=== PATIENT | male | born 1985 | race Caucasian/White ===

== ENCOUNTER 2020-05-23 15:42 | Emergency (ER) | payer SELFPAY ==
--- NOTE | ~2020-05-23 | XR_ITS ---
XR finger 2nd LT min 2V DATE: 05/23/2020 16:11 INDICATION: Crushed index finger between car and alexandra TECHNIQUE: 3 views of second digit COMPARISON: None FINDINGS: There is prominent irregularity and partial soft tissue amputation of the soft tissues of t he distal aspect of the second digit. There is a comminuted fracture of the distal phalanx, with fracture lines involving the shaft and com minuted displaced tuft fracture. No radiopaque soft tissue foreign body is noted. IMPRESSION: Comminuted fracture of the distal phalanx associated with partial soft tissue amputation of the distal second digit Reviewed, dictated and finalized at location A. IMPRESSION: Comminuted fracture of the distal phalanx associated with partial s oft tissue amputation of the distal second digit
[2020-05-23 15:47] VITALS: BP 140/97; PULSE 90; RESP 20; TEMP 36.8; O2SAT 98
--- NOTE | 2020-05-23 16:13 | ED.WOUNDLAC ---
HPI - Wound/Laceration General Chief Complaint: Wound/Laceration Stated Complaint: L INDEX FINGER CRUSHED Time Seen by Provider: 05/23/20 15:47 Source: patient Mode of arrival: ambulatory Limitations: no limitations History of Present Illness HPI narrative: This is a 34-year-old [id number] male that presents the emergency department for left second finger injury sustained just prior to arrival. Reports he got it caught between a alexandra and the base of his truck. Reports a large laceration and deformity. Denies numbness. Related Data Allergies Allergy/AdvReac Type Severity Reaction Status Date / Time No Known Allergies Allergy Verified 05/23/20 15:51 Review of Systems Review of Systems: Narrative: CONSTITUTIONAL: Denies fever SKIN: Reports laceration MUSCULOSKELETAL: Reports joint pain, and myalgia. NEUROLOGIC: Denies numbness All systems reviewed & are unremarkable except as noted in HPI and below PMFSH Surgical History Surgical History (Updated 05/23/20 @ 16:13 by Melissa Murguia PA-C) History of tonsillectomy Social History Social History (Updated 05/23/20 @ 16:14 by Melissa Murguia PA-C) Smokeless tobacco user: chewing tobacco Exam Narrative: Exam Narrative: GENERAL: Well-appearing, well-nourished, and in no acute distress. HEAD: Normocephalic, atraumatic. EYES: EOMI. EXTREMITIES: Normal range of motion in the left second finger PIP joint, decreased ROM in the left 2nd finger DIP joint. Left second finger with complex laceration with open fracture of the distal phalanx. Laceration extends down the length of the finger to the MCP joint. Normal sensation on the radial and ulnar surface of the distal phalanx. Normal radial pulses SKIN: Warm, dry, no rash. NEURO: No focal deficits. Alert and oriented x3. PSYCH: Normal mood and affect Course Vital Signs Vital signs: Vital Signs Temperature 98.2 F 05/23/20 15:47 Pulse Rate 90 05/23/20 15:47 Respiratory Rate 20 05/23/20 15:47 Blood Pressure 140/97 H 05/23/20 15:47 Pulse Oximetry 98 05/23/20 15:47 Temperature 98.1 F 05/23/20 18:05 Pulse Rate 90 05/23/20 18:05 Respiratory Rate 18 05/23/20 18:05 Blood Pressure 140/97 H 05/23/20 18:05 Pulse Oximetry 99 05/23/20 18:05 Procedures Orthopedic Splinting/Casting Injury #1: Splinting/Casting Date: 05/23/20 Splinting/Casting Time: 18:00 Side: left Upper Extremity Injury Location: finger Upper Extremity Immobilizer: finger (other) Splint: prefabricated Pre-Formed: metal foam finger splint Pre-Procedure Neuro Vascular Exam: normal Post-Procedure Neuro Vascular Exam: normal MDM - Wound/Laceration MDM Narrative Medical decision making narrative: Patient presents to the emergency department for complex laceration of the left second finger with open fracture of the distal phalanx. Wound was thoroughly irrigated. Patient was updated on tetanus. Given dose of Ancef in the ED. Left second finger x-ray shows a comminuted fracture of the distal phalanx. Dr. Allison evaluated patient and sutured wound in the ED. Placed in a metal finger splint. He will follow-up with Dr. Allison in clinic. Patient was given warnings to return to the ER Imaging Data Radiologist's impression: ITS Impressions Finger X-Ray 05/23/20 16:12 IMPRESSION: Comminuted fracture of the distal phalanx associated with partial soft tissue amputation of the distal second digit Critical Care Time Critical Care Time Critical Care Time: No Discharge Plan Discharge Clinical Impression: Open fracture of distal phalanx of left index finger Qualifiers: Encounter type: initial encounter Fracture alignment: displaced Qualified Code(s): S62.631B - Displaced fracture of distal phalanx of left index finger, initial encounter for open fracture Patient Disposition: Home, Self-Care Condition: Stable Instructions: Antibiotic Form, Lacer
[2020-05-23 16:24] VITALS: BP 143/74; PULSE 89; RESP 18; TEMP 36.7; O2SAT 100
[2020-05-23] MEDS: MORPHINE SULFATE (*CRX) 4 MG/ML INJ IV PUSH (16:24)
[2020-05-23] MEDS: ceFAZolin SODIUM 1 GM VIAL IV PUSH (16:25)
[2020-05-23] MEDS: WATER, STERILE FOR INJECTION 10 ML VIAL XX (16:25)
[2020-05-23] MEDS: ONDANSETRON INJ 4 MG/2 ML VIAL IV PUSH (16:25)
[2020-05-23 17:06] VITALS: BP 141/84; PULSE 88; RESP 15; TEMP 36.4; O2SAT 99
[2020-05-23 18:05] VITALS: BP 140/97; PULSE 90; RESP 18; TEMP 36.7; O2SAT 99
[2020-05-23] MEDS: TETANUS,DIPHTHERIA,AC PERTUSSIS ADULT (0.5 ML) BOOSTRIX IM (18:36)
[2020-05-23 18:45] VITALS: BP 145/89; PULSE 89; RESP 17; TEMP 36.8; O2SAT 99
--- NOTE | 2020-05-25 16:05 | PM.PROC ---
Procedure Note - Detailed Date of procedure: 05/25/20 Pre-op diagnosis: L INDEX FINGER CRUSHED Displaced open tuft fracture with severe laceration of finger with foreign body and nail injury Post-op diagnosis: same Procedure performed: Closed reduction of displaced distal phalanx fracture. Sharp excisional debridement of grease foreign material of subcutaneous tissue and tendon sheath. 11 cm repair of skin laceration and nail. Description of procedure: This 34-year-old male patient was in the emergency room when I met him. He had sustained a crushing injury to his left index finger between a alexandra and a trailer. He and his friend were able to get the alexandra up and the finger out. The distal phalanx is badly mashed. X-ray in the ER had showed a moderately displaced splayed fracture of the tuft and distal shaft. This was most notable on AP view and not the lateral. The nail and nail bed were to gather but the bed appeared dusky. They were attached to the dorsum of the finger with a soft tissue pedicle. There was a long deep laceration running the length of the volar aspect of this finger crossing joint creases that essentially split the subcutaneous tissue over the flexor tendon sheath. There was a tear in the sheath on the proximal phalanx. There was grease on the sheath and in the subcutaneous tissue. The patient gave his consent to have this repaired. The digit was blocked with 1% lidocaine with epinephrine she began adequate anesthesia. No tourniquet was utilized he had been given IV Ancef. The entire hand was cleansed with Shur-Clens trying to remove grease. The entire digit was carefully inspected and a planned made for repair. Crease was debrided with scissor dissection along the flexor tendon sheath in the proximal phalanx and in the subcutaneous tissue of the proximal and middle phalanges. Nonviable skin was debrided from the distal phalanx preserving anything that could be utilized. The fracture site was irrigated and we were able to easily mold the fragments together with digital manipulation. Landmarks were aligned and sutured with 4-0 nylon. The nail plate was sutured to the tip. The long volar laceration was repaired with interrupted 4-0 nylon. The digital neurovascular bundles appeared to have been spared. A soft bulky bandage was applied and a volar Alumafoam splint. he was discharged home with instructions in wound care and follow-up he was prescribed cephalexin as well as hydrocodone Surgeon: Dirk Allison MD Estimated blood loss (mL): 5 Drains: No Packing: No Pathology: none sent Complications: No immediate complications Condition: stable Disposition: other
== END 2020-05-23 18:50 | disposition home or self-care (01) ==
PROVIDERS: Emergency Provider Emergency Medicine
DX: S62.631B Displaced fracture of distal phalanx of left index finger, initial encounter for open fracture (principal); F17.220 Nicotine dependence, chewing tobacco, uncomplicated; Z23 Encounter for immunization; W23.0XXA Caught, crushed, jammed, or pinched between moving objects, initial encounter
CPT/HCPCS: 11010; 11760; 26755; 29130; 73140; 90471; 90715; 96374; 96375; 96376; 99284; 99285; J0690; J2270; J2405